=== PATIENT | male | born 1985 | race Caucasian/White ===

== ENCOUNTER 2017-03-28 23:07 | Emergency (ER) | payer MEDICAID | END 2017-03-29 01:57 | disposition home or self-care (01) | LOC: D.ER 23:07 | DX: S16.1XXA Strain of muscle, fascia and tendon at neck level, initial encounter (principal); W12.XXXA Fall on and from scaffolding, initial encounter; Y93.89 Activity, other specified; Y92.89 Other specified places as the place of occurrence of the external cause ==

== ENCOUNTER 2017-05-13 21:21 | Emergency (ER) | payer OTHER | END 2017-05-13 22:28 | disposition home or self-care (01) | LOC: D.ER 21:21 | DX: J09.X2 Influenza due to identified novel influenza A virus with other respiratory manifestations (principal) ==

== ENCOUNTER 2019-01-17 06:22 | Emergency (ER) | payer SELFPAY ==
[~2019-01-17] VITALS: Ht 188 cm; Wt 120.5 kg
[2019-01-17 06:36] VITALS: Ht 188 cm; Wt 120.5 kg
[2019-01-17 07:11] LABS: BASOPHILS 0.2 % (0-2); HEMATOCRIT 44.3 % (42.0-54.0); HEMOGLOBIN 15.1 g/dL (13.5-17.5); IMMATURE GRANULOCYTES 0.3 % (0-5); MCH 28.5 pg (26.0-34.0); MCHC 34.1 g/dL (31.0-37.0); MCV 83.7 fL (80.0-100.0); MEAN PLATELET VOLUME 9.1 fL (7.4-10.4); MONOCYTES 9.5 % (2-11); PLATELET COUNT 277 10x3/uL (130-400); RBC 5.29 10x6/uL (4.20-6.10); RDW 15.4 % (11.5-14.5); WBC 9.5 10x3/uL (4.8-10.8)
[2019-01-17 07:18] LABS: ALBUMIN 3.6 g/dL (3.4-5.0); ALKALINE PHOSPHATASE 114 U/L (46-116); ALT (SGPT) 25 U/L (10-68); BILIRUBIN - TOTAL 0.36 mg/dL (0.2-1.3); CALC OSMOLALITY 280 mosm/kg (275-300); CALCIUM 8.9 mg/dL (8.5-10.1); CARBON DIOXIDE 28.4 mmol/L (21.0-32.0); CHLORIDE - SERUM 104 mmol/L (98-107); CREATININE - SERUM 1.1 mg/dL (0.6-1.3); GLUCOSE 103 mg/dL (74-106); POTASSIUM - SERUM 4.1 mmol/L (3.5-5.1); PROTEIN - SERUM 8.2 g/dL (6.4-8.2); SODIUM 140 mmol/L (136-145); UREA NITROGEN 19 mg/dL (7-18); eGFR NON AFRICAN AMERICAN 81 mL/min (90-120)
[2019-01-17] MEDS ORDERED: KEFLEX500 MG PO (09:08)
[2019-01-17] MEDS ORDERED: SULFAMETHOXAZOL1 TA2 PO (09:08)
[2019-01-17] MEDS ORDERED: IBUPROFEN800 MG PO (09:09)
[2019-01-17] MEDS ORDERED: ACETAMINOPHEN500 M1 PO (09:09)
[2019-01-17] MEDS ORDERED: CYCLOBENZAPRINE10 MG PO (09:09)
[2019-01-17 09:55] VITALS: BP 159/96
== END 2019-01-17 09:59 | disposition home or self-care (01) ==
LOC: D.ER 06:22
PROVIDERS: Family Medicine
DX: L02.612 Cutaneous abscess of left foot (principal)

== ENCOUNTER 2019-05-14 20:16 | Emergency (ER) | payer MEDICAID ==
[~2019-05-14] VITALS: Ht 188 cm; Wt 181.8 kg
[~2019-05-14 20:16] MED LIST: ACETAMINOPHEN500 M1 PO; CYCLOBENZAPRINE10 MG PO; IBUPROFEN800 MG PO; KEFLEX500 MG PO; SULFAMETHOXAZOL1 TA2 PO
[2019-05-14 20:33] VITALS: Ht 188 cm; Wt 181.8 kg
[2019-05-14 21:11] LABS: BASOPHILS 0.3 % (0-2); EOSINOPHILS 0.7 % (0-7); HEMATOCRIT 46.3 % (42.0-54.0); HEMOGLOBIN 15.5 g/dL (13.5-17.5); IMMATURE GRANULOCYTES 0.8 % (0-5); LYMPHOCYTES 26.5 % (15-50); MCHC 33.5 g/dL (31.0-37.0); MCV 86.7 fL (80.0-100.0); MEAN PLATELET VOLUME 8.7 fL (7.4-10.4); MONOCYTES 10.8 % (2-11); NEUTROPHILS 60.9 % (40-80); PLATELET COUNT 321 10x3/uL (130-400); RBC 5.34 10x6/uL (4.20-6.10); RDW 16.5 % (11.5-14.5)
[2019-05-14 21:24] LABS: APTT 28.7 SECONDS (22.8-39.4); INR 0.95 (0.85-1.17); PROTIME 12.7 SECONDS (11.6-15.0)
[2019-05-14 21:25] LABS: CALC OSMOLALITY 281 mosm/kg (275-300); CALCIUM 8.6 mg/dL (8.5-10.1); CARBON DIOXIDE 32.1 mmol/L (21.0-32.0); CHLORIDE - SERUM 102 mmol/L (98-107); GLUCOSE 110 mg/dL (74-106); POTASSIUM - SERUM 4.7 mmol/L (3.5-5.1); SODIUM 140 mmol/L (136-145); UREA NITROGEN 19 mg/dL (7-18); eGFR NON AFRICAN AMERICAN > 90 mL/min (90-120)
[2019-05-14 21:41] LABS: ALBUMIN 3.3 g/dL (3.4-5.0); ALKALINE PHOSPHATASE 97 U/L (46-116); ALT (SGPT) 49 U/L (10-68); BILIRUBIN - TOTAL 0.58 mg/dL (0.2-1.3); CKMB 2.7 U/L (0.0-3.6); CREATINE KINASE 325 UL (21-232); MAGNESIUM - SERUM 2.2 mg/dL (1.8-2.4); PROTEIN - SERUM 7.4 g/dL (6.4-8.2); TROPONIN-I 0.028 ng/mL (0.000-0.060)
[2019-05-15 00:10] VITALS: BP 132/73
== END 2019-05-15 00:13 | disposition home or self-care (01) ==
LOC: D.ER 20:16
PROVIDERS: Emergency Medicine
DX: M54.5 Low back pain (principal); R74.8 Abnormal levels of other serum enzymes; R73.9 Hyperglycemia, unspecified; I10 Essential (primary) hypertension; D72.829 Elevated white blood cell count, unspecified; R00.0 Tachycardia, unspecified; Z72.0 Tobacco use